=== PATIENT | male | born 1945 | race Caucasian/White ===

== ENCOUNTER 2020-04-05 23:47 | Inpatient (IN) ==
[2020-04-06] MEDS ORDERED: Ipratropium/Albuterol Neb 3 ML ONE (00:10)
[2020-04-06] MEDS ORDERED: methylPREDNISolone 125 MG/2 ML VIAL IVP ONE (00:13)
[2020-04-06] MEDS ORDERED: Racepinephrine Neb 0.5 ML VIAL IH ONE ×2 (00:23→00:27)
[2020-04-06] MEDS ORDERED: Isovue-370 500 ML BOTTLE IVP ONE ×2 (00:28→03:43)
[2020-04-06 00:33] LABS: Basophils # 0.1 K/mcL (0.0-0.2); Basophils % 0.4 %; Eosinophils % 0.1 %; Hemoglobin 13.8 g/dL (12.9-16.9); Immature Granulocytes % 0.9 % (0-4); Lymphocytes # 0.6 K/mcL (0.6-4.6); Lymphocytes % 3.6 %; Mean Corpuscular HGB Conc 31.4 g/dL (31.6-35.5); Mean Corpuscular Hemoglobin 31.5 pg (28.0-33.3); Mean Corpuscular Volume 100.5 fL (83.0-100.0); Monocytes # 0.8 K/mcL (0.0-1.3); Monocytes % 5.1 %; Neutrophils # 14.2 K/mcL (1.6-8.9); Platelet Count 275 K/mcL (140-400); Red Blood Count 4.38 M/mcL (4.19-5.50); Red Cell Distribution Width 14.2 % (11.5-14.5); Segmented Neutrophils % 89.9 %; White Blood Count 15.8 K/mcL (4.3-11.1)
[2020-04-06 00:35] LABS: Prothrombin Time 11.4 Seconds (9.4-12.1)
[2020-04-06 00:38] LABS: Activated Partial Thrombo Time 25.4 Seconds (26.0-36.0)
[2020-04-06 00:44] LABS: ABG Base Excess 10 mEq/L (-2 to 3); ABG HCO3 39 mEq/L (21-27); ABG Oxygen Saturation 98 % (95-98); ABG PCO2 75 mmHg (35-45); ABG PH 7.33 pH Units (7.32-7.45); ABG PO2 115 mmHg (85-104); ABG TCO2 42 mEq/L (20-26)
[2020-04-06 00:57] LABS: Troponin I 0.05 ng/mL (< 0.04)
[2020-04-06 00:58] LABS: Alanine Aminotransferase 28 Units/L (7-52); Albumin 3.5 g/dL (3.5-5.7); Albumin/Globulin Ratio 1.2 (1.1-2.2); Alkaline Phosphatase 53 Units/L (34-104); Aspartate Amino Transferase 14 Units/L (13-39); BUN/Creatinine Ratio 17 (6-26); Bilirubin,Direct 0.1 mg/dL (0.0-0.2); Bilirubin,Indirect 0.3 mg/dL (0.0-1.0); Bilirubin,Total 0.4 mg/dL (0.3-1.0); Blood Urea Nitrogen 16 mg/dL (8-23); Calcium 8.7 mg/dL (8.6-10.3); Carbon Dioxide 38 mEq/L (23-29); Chloride 97 mEq/L (98-107); Glucose 184 mg/dL (70-105); Osmolality,Calculated 296 (280-300); Potassium 4.7 mEq/L (3.5-5.1); Sodium 140 mEq/L (136-145); Total Protein 6.5 g/dL (6.4-8.9); eGFR For African Americans > 60 (> 60); eGFR For Non-African Americans > 60 (> 60)
[2020-04-06 03:15] LABS: ABG Base Excess 11 mEq/L (-2 to 3); ABG HCO3 40 mEq/L (21-27); ABG Oxygen Saturation 93 % (95-98); ABG PCO2 71 mmHg (35-45); ABG PH 7.36 pH Units (7.32-7.45); ABG PO2 75 mmHg (85-104); ABG TCO2 42 mEq/L (20-26)
[2020-04-06] MEDS ORDERED: 0.9 % Sodium Chloride 1,000 ML IVC ONE (03:45)
[2020-04-06] MEDS ORDERED: *HR* Heparin 5,000 UNIT/ML VIAL IVP PRN ×2 (04:35)
[2020-04-06] MEDS ORDERED: *HR* Heparin 5,000 UNIT/ML VIAL IVP ONE (04:35)
[2020-04-06] MEDS ORDERED: Piperacillin/Tazobactam 3.375 GM in Water for inj. (sterile) 20 ML IVP ONE (04:36)
[2020-04-06] MEDS ORDERED: Azithromycin 500 MG in 0.9 % Sodium Chloride 250 ML IVPB ONE (04:38)
[2020-04-06] MEDS ORDERED: Heparin 25,000 UNIT/250 ML D5W 25,000 UNIT/250 ML IV.SOLN IVC SCH (04:45)
[2020-04-06] MEDS ORDERED: Vancomycin 1,500 MG/265 ML IV.SOLN IVPB ONE (05:00)
[2020-04-06] MEDS ORDERED: Naloxone 0.4 MG/ML INJ IVP PRN (05:25)
[2020-04-06] MEDS ORDERED: *HR* Dextrose 50 % in Water (Vial) 50 ML VIAL IVP PRN (05:25)
[2020-04-06] MEDS ORDERED: D5% in Water 1,000 ML IVC PRN (05:25)
[2020-04-06] MEDS ORDERED: Dextrose Gel 15 GM/37.5 ML TUBE PO PRN ×2 (05:25)
[2020-04-06 05:31] LABS: Adenovirus Not Detected (Not Detect); Bordetella Pertussis Not Detected (Not Detect); Chlamydophila pneumoniae Not Detected (Not Detect); Coronavirus 229E Not Detected (Not Detect); Coronavirus HKU1 Not Detected (Not Detect); Coronavirus NL63 Not Detected (Not Detect); Coronavirus OC43 Not Detected (Not Detect); Human Metapneumovirus Not Detected (Not Detect); Human Rhinovirus/Enterovirus Not Detected (Not Detect); Influenza A Subtype 2009 H1 Not Detected (Not Detect); Influenza B Not Detected (Not Detect); Mycoplasma pneumoniae Not Detected (Not Detect); Parainfluenza Virus 1 Not Detected (Not Detect); Parainfluenza Virus 2 Not Detected (Not Detect); Parainfluenza Virus 3 Not Detected (Not Detect); Parainfluenza Virus 4 Not Detected (Not Detect); Respiratory Syncytial Virus Not Detected (Not Detect); SARS-CoV-2 Not Detected (Not Detect)
[2020-04-06] MEDS ORDERED: Perflutren Lipid Microsphere 1.3 ML in 0.9 % Sodium Chloride 8.7 ML IVP PRN ×2 (05:48→16:32)
[2020-04-06 06:01] LABS: Magnesium 2.4 mg/dL (1.6-2.6); Phosphorous 4.4 mg/dL (2.7-4.5)
[2020-04-06] MEDS ORDERED: *HR* Promethazine 25 MG/ML VIAL IVP PRN (06:18)
[2020-04-06] MEDS: Insulin LISPRO 300 UNITS/3 ML VIAL SQ SCH ×4 (06:42→20:27)
[2020-04-06] MEDS ORDERED: Aminoglycoside Consult 1 EACH MC ONE (09:11)
[2020-04-06] MEDS: Apixaban 5 MG TABLET PO SCH ×2 (10:25→19:38)
[2020-04-06 11:18] LABS: Estimated Average Glucose 174 mg/dl; Hemoglobin A1C 7.7 %
[2020-04-06] MEDS: MethylPREDNISolone 40 MG/ML VIAL IVP SCH (12:23)
[2020-04-06] MEDS: Piperacillin/Tazobactam 3.375 GM in 0.9 % Sodium Chloride Mini Bag 100 ML IVPB SCH ×2 (12:23→19:30)
[2020-04-06] MEDS: Ipratropium/Albuterol Neb 3 ML IH SCH ×2 (15:48→21:32)
[2020-04-06] MEDS ORDERED: Albuterol 2.5 MG/3 ML NEBULIZER IH PRN (16:00)
[2020-04-06] MEDS ORDERED: Vancomycin 1,500 MG/265 ML IV.SOLN IVPB SCH (19:00)
[2020-04-06] MEDS: Budesonide/Formoterol 160/4.5 1 PUFF INH IH SCH (21:32)
[2020-04-07] MEDS: MethylPREDNISolone 40 MG/ML VIAL IVP SCH ×2 (00:15→11:41)
[2020-04-07 01:17] LABS: INR 1.5; Prothrombin Time 16.8 Seconds (9.4-12.1)
[2020-04-07 01:18] LABS: Basophils % 0.1 %; Hematocrit 37.6 % (37.5-50.1); Hemoglobin 12.1 g/dL (12.9-16.9); Immature Granulocytes % 0.7 % (0-4); Lymphocytes # 1.7 K/mcL (0.6-4.6); Lymphocytes % 8.3 %; Mean Corpuscular HGB Conc 32.2 g/dL (31.6-35.5); Mean Corpuscular Hemoglobin 32.2 pg (28.0-33.3); Mean Platelet Volume 9.1 fL (9.4-12.4); Monocytes # 0.8 K/mcL (0.0-1.3); Neutrophils # 18.2 K/mcL (1.6-8.9); Platelet Count 270 K/mcL (140-400); Red Blood Count 3.76 M/mcL (4.19-5.50); Red Cell Distribution Width 13.8 % (11.5-14.5); Segmented Neutrophils % 86.9 %
[2020-04-07 01:31] LABS: BUN/Creatinine Ratio 20 (6-26); Blood Urea Nitrogen 16 mg/dL (8-23); Calcium 8.2 mg/dL (8.6-10.3); Carbon Dioxide 34 mEq/L (23-29); Chloride 101 mEq/L (98-107); Glucose 152 mg/dL (70-105); Magnesium 2.3 mg/dL (1.6-2.6); Osmolality,Calculated 290 (280-300); Potassium 3.8 mEq/L (3.5-5.1); Sodium 138 mEq/L (136-145); eGFR For African Americans > 60 (> 60); eGFR For Non-African Americans > 60 (> 60)
[2020-04-07] MEDS: Ipratropium/Albuterol Neb 3 ML IH SCH ×4 (03:38→21:49)
[2020-04-07] MEDS: Piperacillin/Tazobactam 3.375 GM in 0.9 % Sodium Chloride Mini Bag 100 ML IVPB SCH ×3 (03:53→20:09)
[2020-04-07 04:27] LABS: ABG Base Excess 5 mEq/L (-2 to 3); ABG HCO3 30 mEq/L (21-27); ABG Oxygen Saturation 94 % (95-98); ABG PCO2 49 mmHg (35-45); ABG PO2 73 mmHg (85-104); ABG TCO2 32 mEq/L (20-26); Blood Gas Pressure Support 12 cm H2O
[2020-04-07 07:31] LABS: Bilirubin,Urine Negative (Negative); Blood,Urine Negative (Negative); Clarity,Urine Turbid (Clear); Color,Urine Light-Yellow (Yellow); Glucose,Urine (UA) Normal (Normal); Ketones,Urine Negative (Negative); Leukocyte Esterase,Urine Negative (Negative); Mucus,Urine Few per lpf (None-Few); Nitrite,Urine Negative (Negative); Protein,Urine Negative (Neg-Trace); RBC,Urine 0-3 per hpf (0-3); Squamous Epithelial Cell,Urine Few per hpf (None-Few); Urobilinogen,Urine Normal (Normal); WBC,Urine 0-3 per hpf (0-3)
[2020-04-07] MEDS: Apixaban 5 MG TABLET PO SCH ×2 (08:38→20:09)
[2020-04-07] MEDS: Azithromycin 250 MG TABLET PO SCH (08:39)
[2020-04-07] MEDS: Insulin LISPRO 300 UNITS/3 ML VIAL SQ SCH ×4 (08:44→20:10)
[2020-04-07] MEDS: Budesonide/Formoterol 160/4.5 1 PUFF INH IH SCH ×2 (09:57→21:49)
[2020-04-07] MEDS ORDERED: Tiotropium 18 MCG inhalation IH SCH (10:00)
[2020-04-08] MEDS: MethylPREDNISolone 40 MG/ML VIAL IVP SCH ×3 (00:31→18:40)
[2020-04-08] MEDS: Ipratropium/Albuterol Neb 3 ML IH SCH ×6 (03:45→23:48)
[2020-04-08] MEDS: Piperacillin/Tazobactam 3.375 GM in 0.9 % Sodium Chloride Mini Bag 100 ML IVPB SCH ×3 (04:20→21:34)
[2020-04-08 06:36] LABS: Basophils % 0.1 %; Hematocrit 41.4 % (37.5-50.1); Hemoglobin 13.1 g/dL (12.9-16.9); Immature Granulocytes % 0.5 % (0-4); Lymphocytes # 0.9 K/mcL (0.6-4.6); Lymphocytes % 5.8 %; Mean Corpuscular HGB Conc 31.6 g/dL (31.6-35.5); Mean Corpuscular Hemoglobin 31.7 pg (28.0-33.3); Mean Corpuscular Volume 100.2 fL (83.0-100.0); Mean Platelet Volume 9.3 fL (9.4-12.4); Monocytes # 0.3 K/mcL (0.0-1.3); Monocytes % 2.2 %; Neutrophils # 14.1 K/mcL (1.6-8.9); Platelet Count 266 K/mcL (140-400); Red Blood Count 4.13 M/mcL (4.19-5.50); Red Cell Distribution Width 13.9 % (11.5-14.5); Segmented Neutrophils % 91.4 %; White Blood Count 15.4 K/mcL (4.3-11.1)
[2020-04-08 06:43] LABS: BUN/Creatinine Ratio 17 (6-26); Blood Urea Nitrogen 15 mg/dL (8-23); Calcium 8.5 mg/dL (8.6-10.3); Carbon Dioxide 34 mEq/L (23-29); Chloride 99 mEq/L (98-107); Glucose 176 mg/dL (70-105); Magnesium 2.4 mg/dL (1.6-2.6); Osmolality,Calculated 289 (280-300); Sodium 137 mEq/L (136-145); eGFR For African Americans > 60 (> 60); eGFR For Non-African Americans > 60 (> 60)
[2020-04-08] MEDS: Apixaban 5 MG TABLET PO SCH ×2 (08:23→21:35)
[2020-04-08] MEDS: Azithromycin 250 MG TABLET PO SCH (08:23)
[2020-04-08] MEDS: Insulin LISPRO 300 UNITS/3 ML VIAL SQ SCH ×4 (08:24→21:26)
[2020-04-08] MEDS: Budesonide/Formoterol 160/4.5 1 PUFF INH IH SCH ×2 (11:04→20:29)
[2020-04-09 02:28] LABS: Basophils % 0.1 %; Hematocrit 42.2 % (37.5-50.1); Hemoglobin 13.6 g/dL (12.9-16.9); Immature Granulocytes % 0.5 % (0-4); Lymphocytes % 6.5 %; Mean Corpuscular HGB Conc 32.2 g/dL (31.6-35.5); Mean Corpuscular Hemoglobin 32.5 pg (28.0-33.3); Mean Platelet Volume 9.5 fL (9.4-12.4); Monocytes # 0.5 K/mcL (0.0-1.3); Monocytes % 3.5 %; Neutrophils # 13.6 K/mcL (1.6-8.9); Platelet Count 229 K/mcL (140-400); Red Blood Count 4.18 M/mcL (4.19-5.50); Red Cell Distribution Width 13.8 % (11.5-14.5); Segmented Neutrophils % 89.4 %; White Blood Count 15.2 K/mcL (4.3-11.1)
[2020-04-09 02:41] LABS: BUN/Creatinine Ratio 24 (6-26); Blood Urea Nitrogen 17 mg/dL (8-23); Calcium 8.8 mg/dL (8.6-10.3); Carbon Dioxide 31 mEq/L (23-29); Chloride 101 mEq/L (98-107); Glucose 193 mg/dL (70-105); Magnesium 2.5 mg/dL (1.6-2.6); Osmolality,Calculated 293 (280-300); Phosphorous 3.3 mg/dL (2.7-4.5); Potassium 4.1 mEq/L (3.5-5.1); Sodium 138 mEq/L (136-145); eGFR For African Americans > 60 (> 60); eGFR For Non-African Americans > 60 (> 60)
[2020-04-09] MEDS: Piperacillin/Tazobactam 3.375 GM in 0.9 % Sodium Chloride Mini Bag 100 ML IVPB SCH ×3 (03:45→21:22)
[2020-04-09] MEDS: MethylPREDNISolone 40 MG/ML VIAL IVP SCH ×3 (03:45→18:52)
[2020-04-09] MEDS: Ipratropium/Albuterol Neb 3 ML IH SCH ×5 (04:18→20:31)
[2020-04-09] MEDS: Insulin LISPRO 300 UNITS/3 ML VIAL SQ SCH ×4 (07:20→21:23)
[2020-04-09] MEDS: Budesonide/Formoterol 160/4.5 1 PUFF INH IH SCH ×2 (07:36→20:31)
[2020-04-09] MEDS: Apixaban 5 MG TABLET PO SCH ×2 (10:02→21:23)
[2020-04-09] MEDS: Azithromycin 250 MG TABLET PO SCH (10:02)
[2020-04-10] MEDS: Ipratropium/Albuterol Neb 3 ML IH SCH ×7 (00:30→23:37)
[2020-04-10] MEDS: Piperacillin/Tazobactam 3.375 GM in 0.9 % Sodium Chloride Mini Bag 100 ML IVPB SCH ×3 (03:11→19:48)
[2020-04-10] MEDS: MethylPREDNISolone 40 MG/ML VIAL IVP SCH (03:11)
[2020-04-10 03:35] LABS: Basophils % 0.1 %; Hematocrit 39.3 % (37.5-50.1); Hemoglobin 12.8 g/dL (12.9-16.9); Immature Granulocytes % 0.5 % (0-4); Lymphocytes # 1.1 K/mcL (0.6-4.6); Lymphocytes % 6.8 %; Mean Corpuscular HGB Conc 32.6 g/dL (31.6-35.5); Mean Corpuscular Hemoglobin 31.4 pg (28.0-33.3); Mean Corpuscular Volume 96.6 fL (83.0-100.0); Mean Platelet Volume 9.3 fL (9.4-12.4); Monocytes # 0.6 K/mcL (0.0-1.3); Monocytes % 3.5 %; Platelet Count 255 K/mcL (140-400); Red Blood Count 4.07 M/mcL (4.19-5.50); Red Cell Distribution Width 13.7 % (11.5-14.5); Segmented Neutrophils % 89.1 %; White Blood Count 15.7 K/mcL (4.3-11.1)
[2020-04-10 03:48] LABS: BUN/Creatinine Ratio 28 (6-26); Blood Urea Nitrogen 19 mg/dL (8-23); Calcium 8.6 mg/dL (8.6-10.3); Carbon Dioxide 31 mEq/L (23-29); Chloride 101 mEq/L (98-107); Glucose 157 mg/dL (70-105); Magnesium 2.5 mg/dL (1.6-2.6); Osmolality,Calculated 290 (280-300); Phosphorous 2.8 mg/dL (2.7-4.5); Potassium 3.8 mEq/L (3.5-5.1); Sodium 137 mEq/L (136-145); eGFR For African Americans > 60 (> 60); eGFR For Non-African Americans > 60 (> 60)
[2020-04-10] MEDS: Budesonide/Formoterol 160/4.5 1 PUFF INH IH SCH ×2 (07:51→20:07)
[2020-04-10] MEDS: Apixaban 5 MG TABLET PO SCH ×2 (08:21→19:56)
[2020-04-10] MEDS: Insulin LISPRO 300 UNITS/3 ML VIAL SQ SCH ×4 (08:22→20:07)
[2020-04-10] MEDS: predniSONE 20 MG TABLET PO SCH ×2 (08:22→16:38)
[2020-04-10] MEDS: Azithromycin 250 MG TABLET PO SCH (08:22)
[2020-04-11] MEDS: Ipratropium/Albuterol Neb 3 ML IH SCH ×6 (03:58→23:06)
[2020-04-11] MEDS: Piperacillin/Tazobactam 3.375 GM in 0.9 % Sodium Chloride Mini Bag 100 ML IVPB SCH ×3 (04:09→20:12)
[2020-04-11 05:05] LABS: ABG Base Excess 7 mEq/L (-2 to 3); ABG HCO3 33 mEq/L (21-27); ABG Oxygen Saturation 95 % (95-98); ABG PCO2 53 mmHg (35-45); ABG PO2 78 mmHg (85-104); ABG TCO2 35 mEq/L (20-26)
[2020-04-11 06:41] LABS: Basophils % 0.1 %; Eosinophils % 0.1 %; Hematocrit 39.3 % (37.5-50.1); Hemoglobin 12.8 g/dL (12.9-16.9); Lymphocytes # 1.8 K/mcL (0.6-4.6); Lymphocytes % 12.8 %; Mean Corpuscular HGB Conc 32.6 g/dL (31.6-35.5); Mean Corpuscular Hemoglobin 31.4 pg (28.0-33.3); Mean Corpuscular Volume 96.3 fL (83.0-100.0); Mean Platelet Volume 9.4 fL (9.4-12.4); Monocytes # 0.7 K/mcL (0.0-1.3); Neutrophils # 11.7 K/mcL (1.6-8.9); Platelet Count 251 K/mcL (140-400); Red Blood Count 4.08 M/mcL (4.19-5.50); Red Cell Distribution Width 13.9 % (11.5-14.5); White Blood Count 14.4 K/mcL (4.3-11.1)
[2020-04-11 07:02] LABS: BUN/Creatinine Ratio 26 (6-26); Blood Urea Nitrogen 21 mg/dL (8-23); Calcium 8.2 mg/dL (8.6-10.3); Carbon Dioxide 32 mEq/L (23-29); Chloride 100 mEq/L (98-107); Glucose 167 mg/dL (70-105); Magnesium 2.4 mg/dL (1.6-2.6); Osmolality,Calculated 293 (280-300); Phosphorous 2.7 mg/dL (2.7-4.5); Potassium 3.8 mEq/L (3.5-5.1); Sodium 138 mEq/L (136-145); eGFR For African Americans > 60 (> 60); eGFR For Non-African Americans > 60 (> 60)
[2020-04-11] MEDS: Azithromycin 250 MG TABLET PO SCH (08:58)
[2020-04-11] MEDS: predniSONE 20 MG TABLET PO SCH ×2 (08:58→17:11)
[2020-04-11] MEDS: Apixaban 5 MG TABLET PO SCH ×2 (08:59→20:12)
[2020-04-11] MEDS: Insulin LISPRO 300 UNITS/3 ML VIAL SQ SCH ×4 (08:59→20:12)
[2020-04-11] MEDS: Budesonide/Formoterol 160/4.5 1 PUFF INH IH SCH ×2 (10:30→19:52)
[2020-04-11] MEDS: Finasteride 5 MG TABLET PO SCH (20:11)
[2020-04-11] MEDS: Mirtazapine 15 MG TABLET PO SCH (20:12)
[2020-04-11] MEDS ORDERED: IPRATROPIUM BROMIDE NS SCH (21:00)
[2020-04-12 02:05] LABS: Basophils % 0.1 %; Hematocrit 40.7 % (37.5-50.1); Hemoglobin 13.2 g/dL (12.9-16.9); Immature Granulocytes % 0.6 % (0-4); Lymphocytes # 0.6 K/mcL (0.6-4.6); Lymphocytes % 5.4 %; Mean Corpuscular HGB Conc 32.4 g/dL (31.6-35.5); Mean Corpuscular Hemoglobin 31.9 pg (28.0-33.3); Mean Corpuscular Volume 98.3 fL (83.0-100.0); Mean Platelet Volume 9.5 fL (9.4-12.4); Monocytes # 0.4 K/mcL (0.0-1.3); Monocytes % 2.9 %; Neutrophils # 10.8 K/mcL (1.6-8.9); Platelet Count 250 K/mcL (140-400); Red Blood Count 4.14 M/mcL (4.19-5.50); Red Cell Distribution Width 13.9 % (11.5-14.5); White Blood Count 11.9 K/mcL (4.3-11.1)
[2020-04-12 02:21] LABS: BUN/Creatinine Ratio 23 (6-26); Blood Urea Nitrogen 19 mg/dL (8-23); Calcium 8.1 mg/dL (8.6-10.3); Carbon Dioxide 30 mEq/L (23-29); Chloride 102 mEq/L (98-107); Glucose 206 mg/dL (70-105); Magnesium 2.5 mg/dL (1.6-2.6); Osmolality,Calculated 294 (280-300); Phosphorous 3.2 mg/dL (2.7-4.5); Sodium 138 mEq/L (136-145); eGFR For African Americans > 60 (> 60); eGFR For Non-African Americans > 60 (> 60)
[2020-04-12] MEDS: Piperacillin/Tazobactam 3.375 GM in 0.9 % Sodium Chloride Mini Bag 100 ML IVPB SCH ×3 (03:51→20:10)
[2020-04-12] MEDS: Ipratropium/Albuterol Neb 3 ML IH SCH ×5 (04:18→20:37)
[2020-04-12] MEDS: predniSONE 20 MG TABLET PO SCH ×2 (07:36→16:15)
[2020-04-12] MEDS: Bumetanide 1 MG TABLET PO SCH (07:37)
[2020-04-12] MEDS: Insulin LISPRO 300 UNITS/3 ML VIAL SQ SCH ×4 (07:38→20:10)
[2020-04-12] MEDS: Apixaban 5 MG TABLET PO SCH ×2 (07:38→20:10)
[2020-04-12] MEDS: Budesonide/Formoterol 160/4.5 1 PUFF INH IH SCH ×2 (07:46→20:38)
[2020-04-12] MEDS: Mirtazapine 15 MG TABLET PO SCH (20:09)
[2020-04-12] MEDS: Finasteride 5 MG TABLET PO SCH (20:10)
[2020-04-13] MEDS: Ipratropium/Albuterol Neb 3 ML IH SCH ×3 (00:09→07:38)
[2020-04-13 02:47] LABS: Basophils % 0.1 %; Hematocrit 39.3 % (37.5-50.1); Hemoglobin 12.7 g/dL (12.9-16.9); Immature Granulocytes % 0.6 % (0-4); Lymphocytes # 1.2 K/mcL (0.6-4.6); Lymphocytes % 8.3 %; Mean Corpuscular HGB Conc 32.3 g/dL (31.6-35.5); Mean Corpuscular Hemoglobin 31.8 pg (28.0-33.3); Mean Corpuscular Volume 98.3 fL (83.0-100.0); Mean Platelet Volume 9.7 fL (9.4-12.4); Monocytes # 0.5 K/mcL (0.0-1.3); Monocytes % 3.7 %; Neutrophils # 12.3 K/mcL (1.6-8.9); Platelet Count 215 K/mcL (140-400); Red Cell Distribution Width 13.9 % (11.5-14.5); Segmented Neutrophils % 87.3 %; White Blood Count 14.1 K/mcL (4.3-11.1)
[2020-04-13 03:07] LABS: BUN/Creatinine Ratio 24 (6-26); Blood Urea Nitrogen 22 mg/dL (8-23); Calcium 8.4 mg/dL (8.6-10.3); Carbon Dioxide 29 mEq/L (23-29); Chloride 103 mEq/L (98-107); Glucose 186 mg/dL (70-105); Magnesium 2.3 mg/dL (1.6-2.6); Osmolality,Calculated 296 (280-300); Phosphorous 3.5 mg/dL (2.7-4.5); Potassium 3.9 mEq/L (3.5-5.1); Sodium 139 mEq/L (136-145); eGFR For African Americans > 60 (> 60); eGFR For Non-African Americans > 60 (> 60)
[2020-04-13] MEDS: Piperacillin/Tazobactam 3.375 GM in 0.9 % Sodium Chloride Mini Bag 100 ML IVPB SCH (03:28)
[2020-04-13 07:31] VITALS: BP 131/77
[2020-04-13] MEDS: Budesonide/Formoterol 160/4.5 1 PUFF INH IH SCH (07:38)
[2020-04-13] MEDS: Insulin LISPRO 300 UNITS/3 ML VIAL SQ SCH (07:46)
[2020-04-13] MEDS: Bumetanide 1 MG TABLET PO SCH (07:47)
[2020-04-13] MEDS: predniSONE 20 MG TABLET PO SCH (07:47)
[2020-04-13] MEDS ORDERED: Apixaban 5 MG TABLET PO SCH (09:00)
== END 2020-04-13 09:12 | DRG 175 ==
LOC: 2NNU 23:47 → EMEROOARM 23:47 → 2NNU 04-06 06:10 → SUATTDRO 04-06 16:58 → 2ANU 04-08 18:14
PROVIDERS: ADMIT Internal Medicine; ATTEND Internal Medicine

== ENCOUNTER 2020-07-05 14:13 | Inpatient (IN) ==
[2020-07-05] MEDS ORDERED: Isovue-370 500 ML BOTTLE IVP ONE ×2 (14:41→15:53)
[2020-07-05] MEDS ORDERED: 0.9 % Sodium Chloride 1,000 ML IVC ONE ×2 (14:43→15:54)
[2020-07-05 14:55] LABS: Basophils # 0.1 K/mcL (0.0-0.2); Basophils % 0.3 %; Eosinophils % 0.1 %; Hematocrit 37.5 % (37.5-50.1); Hemoglobin 11.7 g/dL (12.9-16.9); Immature Granulocytes % 0.7 % (0-4); Lymphocytes # 0.3 K/mcL (0.6-4.6); Lymphocytes % 1.9 %; Mean Corpuscular HGB Conc 31.2 g/dL (31.6-35.5); Mean Corpuscular Hemoglobin 31.2 pg (28.0-33.3); Mean Platelet Volume 9.4 fL (9.4-12.4); Monocytes # 0.6 K/mcL (0.0-1.3); Monocytes % 3.6 %; Neutrophils # 15.7 K/mcL (1.6-8.9); Platelet Count 288 K/mcL (140-400); Red Blood Count 3.75 M/mcL (4.19-5.50); Red Cell Distribution Width 13.8 % (11.5-14.5); Segmented Neutrophils % 93.4 %; White Blood Count 16.8 K/mcL (4.3-11.1)
[2020-07-05 15:05] LABS: INR 1.6; Prothrombin Time 18.7 Seconds (9.4-12.1)
[2020-07-05 15:08] LABS: Activated Partial Thrombo Time 28.6 Seconds (26.0-36.0)
[2020-07-05 15:17] LABS: Alanine Aminotransferase 25 Units/L (7-52); Albumin 3.6 g/dL (3.5-5.7); Albumin/Globulin Ratio 1.2 (1.1-2.2); Alkaline Phosphatase 59 Units/L (34-104); Aspartate Amino Transferase 27 Units/L (13-39); BUN/Creatinine Ratio 22 (6-26); Bilirubin,Direct 0.1 mg/dL (0.0-0.2); Bilirubin,Indirect 0.3 mg/dL (0.0-1.0); Bilirubin,Total 0.4 mg/dL (0.3-1.0); Blood Urea Nitrogen 20 mg/dL (8-23); Calcium 9.4 mg/dL (8.6-10.3); Carbon Dioxide 29 mEq/L (23-29); Chloride 102 mEq/L (98-107); Globulin 3.1 g/dL (2.4-3.5); Glucose 152 mg/dL (70-105); Osmolality,Calculated 292 (280-300); Phosphorous 1.7 mg/dL (2.7-4.5); Potassium 3.4 mEq/L (3.5-5.1); Sodium 138 mEq/L (136-145); Total Protein 6.7 g/dL (6.4-8.9); Troponin I 0.03 ng/mL (< 0.04); eGFR For African Americans > 60 (> 60); eGFR For Non-African Americans > 60 (> 60)
[2020-07-05 15:24] LABS: Bacteria,Urine Few per hpf (None-Few); Bilirubin,Urine Negative (Negative); Blood,Urine Large (Negative); Clarity,Urine Ex.Turbid (Clear); Color,Urine Orange (Yellow); Glucose,Urine (UA) Normal (Normal); Ketones,Urine Negative (Negative); Leukocyte Esterase,Urine Large (Negative); Mucus,Urine Many per lpf (None-Few); Nitrite,Urine Negative (Negative); Protein,Urine 100 mg/dL (Neg-Trace); RBC,Urine TNTC per hpf (0-3); Specific Gravity,Urine 1.024 (1.010-1.025); Urobilinogen,Urine Normal (Normal); WBC,Urine TNTC per hpf (0-3)
[2020-07-05] MEDS ORDERED: cefTRIAXone 1,000 MG in 0.9 % Sodium Chloride Mini Bag 100 ML IVPB ONE (16:07)
[2020-07-05] MEDS ORDERED: *HR* Norepinephrine 4 MG/4 ML VIAL IVC ONE (17:43)
[2020-07-05] MEDS ORDERED: 0.9 % Sodium Chloride 250 ML ONE (17:43)
[2020-07-05] MEDS ORDERED: Ondansetron 4 MG/2 ML VIAL IVP PRN (18:12)
[2020-07-05] MEDS ORDERED: Naloxone 0.4 MG/ML INJ IVP PRN (18:12)
[2020-07-05] MEDS ORDERED: Acetaminophen 650 MG RECTAL SUPP RC PRN (18:12)
[2020-07-05] MEDS: Norepinephrine 4 MG/254 ML IV.SOLN IVC SCH (18:38)
[2020-07-05 22:35] LABS: VBG Ionized Calcium 1.14 mmol/L (1.15-1.35)
[2020-07-05 22:47] LABS: BUN/Creatinine Ratio 22 (6-26); Blood Urea Nitrogen 17 mg/dL (8-23); Calcium 8.6 mg/dL (8.6-10.3); Carbon Dioxide 27 mEq/L (23-29); Chloride 105 mEq/L (98-107); Glucose 147 mg/dL (70-105); Magnesium 2.1 mg/dL (1.6-2.6); Osmolality,Calculated 292 (280-300); Phosphorous 3.3 mg/dL (2.7-4.5); Potassium 3.7 mEq/L (3.5-5.1); Sodium 139 mEq/L (136-145); eGFR For African Americans > 60 (> 60); eGFR For Non-African Americans > 60 (> 60)
[2020-07-05] MEDS: Ipratropium/Albuterol Neb 3 ML IH SCH (22:54)
[2020-07-05] MEDS: Acetylcysteine 10% 2 ML INHSOL IH SCH (22:54)
[2020-07-05] MEDS: Docusate Oral Soln 100 MG/10 ML UDC GTUBE SCH (23:16)
[2020-07-05] MEDS: Famotidine 20 MG TABLET GTUBE SCH (23:16)
[2020-07-05] MEDS: Apixaban 5 MG TABLET GTUBE SCH (23:16)
[2020-07-05] MEDS: QUEtiapine Fumarate 25 MG TABLET GTUBE SCH (23:17)
[2020-07-06 04:22] LABS: Basophils # 0.1 K/mcL (0.0-0.2); Basophils % 0.4 %; Eosinophils % 0.1 %; Hematocrit 31.6 % (37.5-50.1); Hemoglobin 9.9 g/dL (12.9-16.9); Immature Granulocytes % 0.4 % (0-4); Lymphocytes # 0.7 K/mcL (0.6-4.6); Lymphocytes % 5.5 %; Mean Corpuscular HGB Conc 31.3 g/dL (31.6-35.5); Mean Corpuscular Hemoglobin 31.5 pg (28.0-33.3); Mean Corpuscular Volume 100.6 fL (83.0-100.0); Mean Platelet Volume 9.5 fL (9.4-12.4); Monocytes # 0.5 K/mcL (0.0-1.3); Monocytes % 4.2 %; Platelet Count 241 K/mcL (140-400); Red Blood Count 3.14 M/mcL (4.19-5.50); Red Cell Distribution Width 13.9 % (11.5-14.5); Segmented Neutrophils % 89.4 %; White Blood Count 12.3 K/mcL (4.3-11.1)
[2020-07-06 04:23] LABS: VBG Ionized Calcium 1.19 mmol/L (1.15-1.35)
[2020-07-06] MEDS: Ipratropium/Albuterol Neb 3 ML IH SCH ×4 (04:26→22:21)
[2020-07-06] MEDS: Acetylcysteine 10% 2 ML INHSOL IH SCH ×4 (04:26→22:21)
[2020-07-06 04:39] LABS: BUN/Creatinine Ratio 23 (6-26); Blood Urea Nitrogen 17 mg/dL (8-23); Calcium 8.7 mg/dL (8.6-10.3); Carbon Dioxide 29 mEq/L (23-29); Chloride 107 mEq/L (98-107); Glucose 108 mg/dL (70-105); Osmolality,Calculated 292 (280-300); Phosphorous 2.6 mg/dL (2.7-4.5); Potassium 3.5 mEq/L (3.5-5.1); Sodium 140 mEq/L (136-145); eGFR For African Americans > 60 (> 60); eGFR For Non-African Americans > 60 (> 60)
[2020-07-06] MEDS ORDERED: Potassium Phosphate 44 MEQ in 0.9 % Sodium Chloride 250 ML IVPB ONE (05:38)
[2020-07-06] MEDS: Cefepime HCl 2,000 MG in Water for inj. (sterile) 20 ML IVP SCH ×2 (06:41→19:47)
[2020-07-06] MEDS: Apixaban 5 MG TABLET GTUBE SCH ×2 (09:07→21:27)
[2020-07-06] MEDS: Finasteride 5 MG TABLET PO SCH (09:07)
[2020-07-06] MEDS: QUEtiapine Fumarate 25 MG TABLET GTUBE SCH ×2 (09:07→21:27)
[2020-07-06] MEDS: Famotidine 20 MG TABLET GTUBE SCH ×2 (09:07→21:27)
[2020-07-06] MEDS: Docusate Oral Soln 100 MG/10 ML UDC GTUBE SCH ×2 (09:08→21:27)
[2020-07-06] MEDS: Norepinephrine 4 MG/254 ML IV.SOLN IVC SCH (22:25)
[2020-07-07] MEDS: Acetylcysteine 10% 2 ML INHSOL IH SCH ×4 (04:17→22:14)
[2020-07-07] MEDS: Ipratropium/Albuterol Neb 3 ML IH SCH ×4 (04:17→22:14)
[2020-07-07 04:51] LABS: BUN/Creatinine Ratio 67 (6-26); Blood Urea Nitrogen 50 mg/dL (8-23); Calcium 8.6 mg/dL (8.6-10.3); Carbon Dioxide 31 mEq/L (23-29); Chloride 108 mEq/L (98-107); Glucose 160 mg/dL (70-105); Osmolality,Calculated 313 (280-300); Potassium 4.1 mEq/L (3.5-5.1); Sodium 143 mEq/L (136-145); eGFR For African Americans > 60 (> 60); eGFR For Non-African Americans > 60 (> 60)
[2020-07-07] MEDS: Cefepime HCl 2,000 MG in Water for inj. (sterile) 20 ML IVP SCH ×2 (05:45→17:16)
[2020-07-07 08:11] LABS: Basophils % 0.4 %; Eosinophils # 0.4 K/mcL (0.0-0.6); Eosinophils % 5.3 %; Hematocrit 33.2 % (37.5-50.1); Immature Granulocytes % 0.1 % (0-4); Lymphocytes # 1.7 K/mcL (0.6-4.6); Lymphocytes % 21.7 %; Mean Corpuscular HGB Conc 31.6 g/dL (31.6-35.5); Mean Corpuscular Hemoglobin 32.3 pg (28.0-33.3); Mean Platelet Volume 9.3 fL (9.4-12.4); Monocytes # 0.6 K/mcL (0.0-1.3); Monocytes % 7.4 %; Neutrophils # 5.2 K/mcL (1.6-8.9); Platelet Count 214 K/mcL (140-400); Red Blood Count 3.25 M/mcL (4.19-5.50); Red Cell Distribution Width 13.8 % (11.5-14.5); Segmented Neutrophils % 65.1 %
[2020-07-07 08:12] LABS: Hemoglobin 10.5 g/dL (12.9-16.9); Mean Corpuscular Volume 102.2 fL (83.0-100.0)
[2020-07-07] MEDS: Famotidine 20 MG TABLET GTUBE SCH (08:49)
[2020-07-07] MEDS: Docusate Oral Soln 100 MG/10 ML UDC GTUBE SCH (08:49)
[2020-07-07] MEDS: Finasteride 5 MG TABLET PO SCH (08:49)
[2020-07-07] MEDS: QUEtiapine Fumarate 25 MG TABLET GTUBE SCH (08:49)
[2020-07-07] MEDS: Apixaban 5 MG TABLET GTUBE SCH (08:50)
[2020-07-07] MEDS ORDERED: Ondansetron 4 MG/2 ML VIAL IVP PRN (10:39)
[2020-07-07] MEDS ORDERED: Albuterol 2.5 MG/3 ML NEBULIZER IH PRN (10:39)
[2020-07-07] MEDS ORDERED: Naloxone 0.4 MG/ML INJ IVP PRN (10:39)
[2020-07-07] MEDS ORDERED: Acetaminophen 650 MG RECTAL SUPP RC PRN (10:39)
[2020-07-07] MEDS ORDERED: hydrOXYzine pamoate 25 MG CAPSULE PO PRN (10:39)
[2020-07-07] MEDS ORDERED: Ondansetron ODT 4 MG TAB.RAPDIS SL PRN (10:39)
[2020-07-07] MEDS: Bumetanide 1 MG TABLET PO SCH (12:37)
[2020-07-07] MEDS: Potassium Chloride Elixir 20 MEQ/15 ML UDC PO SCH (17:16)
[2020-07-07] MEDS: Sennosides/Docusate Sodium TABLET PO SCH (19:33)
[2020-07-07] MEDS: Famotidine 20 MG TABLET PO SCH (19:33)
[2020-07-07] MEDS: QUEtiapine Fumarate 25 MG TABLET PO SCH (19:33)
[2020-07-07] MEDS: Apixaban 5 MG TABLET PO SCH (19:33)
[2020-07-07] MEDS: Docusate Oral Soln 100 MG/10 ML UDC PO SCH (19:33)
[2020-07-07] MEDS ORDERED: QUEtiapine Fumarate 25 MG TABLET PO SCH (21:00)
[2020-07-07] MEDS: Latanoprost 2.5 ML BOTTLE BOTH EYES SCH (21:11)
[2020-07-08] MEDS: Acetylcysteine 10% 2 ML INHSOL IH SCH ×4 (04:16→21:21)
[2020-07-08] MEDS: Ipratropium/Albuterol Neb 3 ML IH SCH ×4 (04:16→21:21)
[2020-07-08 04:28] LABS: Basophils % 0.4 %; Eosinophils # 0.4 K/mcL (0.0-0.6); Eosinophils % 5.7 %; Hematocrit 33.6 % (37.5-50.1); Hemoglobin 10.6 g/dL (12.9-16.9); Immature Granulocytes % 0.4 % (0-4); Lymphocytes # 1.7 K/mcL (0.6-4.6); Mean Corpuscular HGB Conc 31.5 g/dL (31.6-35.5); Mean Corpuscular Hemoglobin 30.6 pg (28.0-33.3); Mean Corpuscular Volume 97.1 fL (83.0-100.0); Mean Platelet Volume 9.7 fL (9.4-12.4); Monocytes # 0.6 K/mcL (0.0-1.3); Neutrophils # 4.5 K/mcL (1.6-8.9); Platelet Count 237 K/mcL (140-400); Red Blood Count 3.46 M/mcL (4.19-5.50); Red Cell Distribution Width 13.7 % (11.5-14.5); Segmented Neutrophils % 62.5 %; White Blood Count 7.2 K/mcL (4.3-11.1)
[2020-07-08 04:54] LABS: BUN/Creatinine Ratio 25 (6-26); Blood Urea Nitrogen 18 mg/dL (8-23); Calcium 8.4 mg/dL (8.6-10.3); Carbon Dioxide 28 mEq/L (23-29); Chloride 103 mEq/L (98-107); Glucose 101 mg/dL (70-105); Osmolality,Calculated 288 (280-300); Potassium 2.8 mEq/L (3.5-5.1); Sodium 138 mEq/L (136-145); eGFR For African Americans > 60 (> 60); eGFR For Non-African Americans > 60 (> 60)
[2020-07-08] MEDS: Cefepime HCl 2,000 MG in Water for inj. (sterile) 20 ML IVP SCH ×3 (05:09→23:31)
[2020-07-08] MEDS: Finasteride 5 MG TABLET PO SCH (08:39)
[2020-07-08] MEDS: Sennosides/Docusate Sodium TABLET PO SCH ×2 (08:39→22:37)
[2020-07-08] MEDS: Docusate Oral Soln 100 MG/10 ML UDC PO SCH ×2 (08:39→22:38)
[2020-07-08] MEDS: Apixaban 5 MG TABLET PO SCH ×2 (08:39→22:38)
[2020-07-08] MEDS: Bumetanide 1 MG TABLET PO SCH (08:39)
[2020-07-08] MEDS: QUEtiapine Fumarate 25 MG TABLET PO SCH ×2 (08:39→22:38)
[2020-07-08] MEDS: Potassium Chloride Elixir 20 MEQ/15 ML UDC PO SCH ×3 (08:39→22:38)
[2020-07-08] MEDS: Famotidine 20 MG TABLET PO SCH ×2 (08:39→22:37)
[2020-07-08] MEDS: Latanoprost 2.5 ML BOTTLE BOTH EYES SCH (22:39)
[2020-07-09] MEDS: Acetylcysteine 10% 2 ML INHSOL IH SCH ×4 (03:41→21:39)
[2020-07-09] MEDS: Ipratropium/Albuterol Neb 3 ML IH SCH ×4 (03:41→21:39)
[2020-07-09] MEDS: Cefepime HCl 2,000 MG in Water for inj. (sterile) 20 ML IVP SCH ×2 (07:47→15:55)
[2020-07-09] MEDS: Famotidine 20 MG TABLET PO SCH ×2 (07:48→21:53)
[2020-07-09] MEDS: QUEtiapine Fumarate 25 MG TABLET PO SCH ×2 (07:48→21:54)
[2020-07-09] MEDS: Apixaban 5 MG TABLET PO SCH ×2 (07:48→21:53)
[2020-07-09] MEDS: Sennosides/Docusate Sodium TABLET PO SCH ×2 (07:48→21:54)
[2020-07-09] MEDS: Docusate Oral Soln 100 MG/10 ML UDC PO SCH ×2 (07:48→21:54)
[2020-07-09] MEDS: Bumetanide 1 MG TABLET PO SCH (07:48)
[2020-07-09] MEDS: Finasteride 5 MG TABLET PO SCH (07:48)
[2020-07-09 08:42] LABS: Magnesium 2.1 mg/dL (1.6-2.6); Potassium 3.6 mEq/L (3.5-5.1)
[2020-07-09] MEDS ORDERED: Potassium Chloride Elixir 20 MEQ/15 ML UDC PO ONE (09:19)
[2020-07-09] MEDS: Latanoprost 2.5 ML BOTTLE BOTH EYES SCH (21:54)
[2020-07-10] MEDS: Cefepime HCl 2,000 MG in Water for inj. (sterile) 20 ML IVP SCH ×3 (00:58→15:39)
[2020-07-10] MEDS: Ipratropium/Albuterol Neb 3 ML IH SCH ×4 (03:49→21:02)
[2020-07-10] MEDS: Acetylcysteine 10% 2 ML INHSOL IH SCH ×4 (03:49→21:02)
[2020-07-10] MEDS: Famotidine 20 MG TABLET PO SCH ×2 (07:38→21:52)
[2020-07-10] MEDS: Finasteride 5 MG TABLET PO SCH (07:38)
[2020-07-10] MEDS: Apixaban 5 MG TABLET PO SCH ×2 (07:38→21:51)
[2020-07-10] MEDS: Sennosides/Docusate Sodium TABLET PO SCH (07:38)
[2020-07-10] MEDS: Docusate Oral Soln 100 MG/10 ML UDC PO SCH ×2 (07:38→21:52)
[2020-07-10] MEDS: Bumetanide 1 MG TABLET PO SCH (07:38)
[2020-07-10] MEDS: QUEtiapine Fumarate 25 MG TABLET PO SCH ×2 (07:39→21:51)
[2020-07-10 10:24] LABS: BUN/Creatinine Ratio 21 (6-26); Blood Urea Nitrogen 16 mg/dL (8-23); Calcium 9.2 mg/dL (8.6-10.3); Carbon Dioxide 29 mEq/L (23-29); Chloride 100 mEq/L (98-107); Glucose 135 mg/dL (70-105); Osmolality,Calculated 289 (280-300); Potassium 3.7 mEq/L (3.5-5.1); Sodium 138 mEq/L (136-145); eGFR For African Americans > 60 (> 60); eGFR For Non-African Americans > 60 (> 60)
[2020-07-10] MEDS ORDERED: Sennosides/Docusate Sodium TABLET PO PRN (12:29)
[2020-07-10] MEDS: Latanoprost 2.5 ML BOTTLE BOTH EYES SCH (21:52)
[2020-07-11] MEDS: Cefepime HCl 2,000 MG in Water for inj. (sterile) 20 ML IVP SCH ×3 (00:36→18:06)
[2020-07-11] MEDS: Acetylcysteine 10% 2 ML INHSOL IH SCH ×4 (03:28→21:21)
[2020-07-11] MEDS: Ipratropium/Albuterol Neb 3 ML IH SCH ×4 (03:28→21:21)
[2020-07-11 07:14] LABS: Hematocrit 34.7 % (37.5-50.1); Hemoglobin 11.2 g/dL (12.9-16.9); Mean Corpuscular HGB Conc 32.3 g/dL (31.6-35.5); Mean Corpuscular Volume 99.1 fL (83.0-100.0); Mean Platelet Volume 9.3 fL (9.4-12.4); Platelet Count 296 K/mcL (140-400); Red Cell Distribution Width 13.4 % (11.5-14.5); White Blood Count 7.6 K/mcL (4.3-11.1)
[2020-07-11 08:07] LABS: BUN/Creatinine Ratio 18 (6-26); Blood Urea Nitrogen 14 mg/dL (8-23); Calcium 9.3 mg/dL (8.6-10.3); Carbon Dioxide 34 mEq/L (23-29); Chloride 101 mEq/L (98-107); Glucose 110 mg/dL (70-105); Osmolality,Calculated 289 (280-300); Potassium 3.8 mEq/L (3.5-5.1); Sodium 139 mEq/L (136-145); eGFR For African Americans > 60 (> 60); eGFR For Non-African Americans > 60 (> 60)
[2020-07-11] MEDS: Finasteride 5 MG TABLET PO SCH (10:15)
[2020-07-11] MEDS: Docusate Oral Soln 100 MG/10 ML UDC PO SCH ×2 (10:15→22:30)
[2020-07-11] MEDS: Apixaban 5 MG TABLET PO SCH ×2 (10:15→22:30)
[2020-07-11] MEDS: Famotidine 20 MG TABLET PO SCH (10:15)
[2020-07-11] MEDS: QUEtiapine Fumarate 25 MG TABLET PO SCH ×2 (10:16→22:29)
[2020-07-11] MEDS: Bumetanide 1 MG TABLET PO SCH (10:25)
[2020-07-11] MEDS: Latanoprost 2.5 ML BOTTLE BOTH EYES SCH (22:30)
[2020-07-12] MEDS: Cefepime HCl 2,000 MG in Water for inj. (sterile) 20 ML IVP SCH ×2 (01:57→09:12)
[2020-07-12 02:01] LABS: BUN/Creatinine Ratio 19 (6-26); Blood Urea Nitrogen 15 mg/dL (8-23); Carbon Dioxide 31 mEq/L (23-29); Chloride 98 mEq/L (98-107); Glucose 104 mg/dL (70-105); Osmolality,Calculated 285 (280-300); Potassium 3.1 mEq/L (3.5-5.1); Sodium 137 mEq/L (136-145); eGFR For African Americans > 60 (> 60); eGFR For Non-African Americans > 60 (> 60)
[2020-07-12] MEDS: Acetylcysteine 10% 2 ML INHSOL IH SCH ×3 (03:28→15:35)
[2020-07-12] MEDS: Ipratropium/Albuterol Neb 3 ML IH SCH ×3 (03:28→15:35)
[2020-07-12] MEDS: Bumetanide 1 MG TABLET PO SCH (09:12)
[2020-07-12] MEDS: Docusate Oral Soln 100 MG/10 ML UDC PO SCH (09:12)
[2020-07-12] MEDS: Apixaban 5 MG TABLET PO SCH (09:13)
[2020-07-12] MEDS: Finasteride 5 MG TABLET PO SCH (09:13)
[2020-07-12] MEDS: QUEtiapine Fumarate 25 MG TABLET PO SCH (09:13)
[2020-07-12 11:18] VITALS: BP 114/69
[2020-07-12 13:11] LABS: Adenovirus Not Detected (Not Detect); Bordetella Pertussis Not Detected (Not Detect); Chlamydophila pneumoniae Not Detected (Not Detect); Coronavirus 229E Not Detected (Not Detect); Coronavirus HKU1 Not Detected (Not Detect); Coronavirus NL63 Not Detected (Not Detect); Coronavirus OC43 Not Detected (Not Detect); Human Metapneumovirus Not Detected (Not Detect); Human Rhinovirus/Enterovirus Not Detected (Not Detect); Influenza A Subtype 2009 H1 Not Detected (Not Detect); Influenza B Not Detected (Not Detect); Mycoplasma pneumoniae Not Detected (Not Detect); Parainfluenza Virus 1 Not Detected (Not Detect); Parainfluenza Virus 2 Not Detected (Not Detect); Parainfluenza Virus 3 Not Detected (Not Detect); Parainfluenza Virus 4 Not Detected (Not Detect); Respiratory Syncytial Virus Not Detected (Not Detect); SARS-CoV-2 Not Detected (Not Detect)
== END 2020-07-12 17:08 | DRG 698 ==
LOC: EMEROOARM 14:13 → ICNU 18:46 → SUATTDRO 18:46 → ICNU 20:13 → 2ANU 07-08 19:32
PROVIDERS: ADMIT Family Medicine; ATTEND Internal Medicine

== ENCOUNTER 2020-08-21 21:29 | Inpatient (IN) ==
[2020-08-21 22:42] LABS: Basophils # 0.1 K/mcL (0.0-0.2); Basophils % 0.4 %; Hematocrit 34.5 % (37.5-50.1); Hemoglobin 11.4 g/dL (12.9-16.9); Immature Granulocytes % 0.3 % (0-4); Lymphocytes # 1.5 K/mcL (0.6-4.6); Lymphocytes % 11.6 %; Mean Corpuscular Hemoglobin 32.1 pg (28.0-33.3); Mean Corpuscular Volume 97.2 fL (83.0-100.0); Mean Platelet Volume 9.8 fL (9.4-12.4); Monocytes # 0.8 K/mcL (0.0-1.3); Monocytes % 5.9 %; Neutrophils # 10.6 K/mcL (1.6-8.9); Platelet Count 231 K/mcL (140-400); Red Blood Count 3.55 M/mcL (4.19-5.50); Red Cell Distribution Width 13.6 % (11.5-14.5); Segmented Neutrophils % 81.8 %
[2020-08-21 22:49] LABS: INR 1.5; Prothrombin Time 17.5 Seconds (9.4-12.1)
[2020-08-21] MEDS ORDERED: Vancomycin 1,500 MG/265 ML IV.SOLN IVPB ONE (22:51)
[2020-08-21] MEDS ORDERED: Azithromycin 500 MG in 0.9 % Sodium Chloride 250 ML IVPB ONE (22:51)
[2020-08-21] MEDS ORDERED: Piperacillin/Tazobactam 3.375 GM in 0.9 % Sodium Chloride Mini Bag 100 ML IVPB ONE (22:51)
[2020-08-21 23:05] LABS: ABG Base Excess 6 mEq/L (-2 to 3); ABG HCO3 32 mEq/L (21-27); ABG Oxygen Saturation 100 % (95-98); ABG PCO2 52 mmHg (35-45); ABG PH 7.39 pH Units (7.32-7.45); ABG PO2 231 mmHg (85-104); ABG TCO2 34 mEq/L (20-26)
[2020-08-21 23:07] LABS: Alanine Aminotransferase 13 Units/L (7-52); Albumin 3.5 g/dL (3.5-5.7); Albumin/Globulin Ratio 1.5 (1.1-2.2); Alkaline Phosphatase 59 Units/L (34-104); Aspartate Amino Transferase 13 Units/L (13-39); BUN/Creatinine Ratio 12 (6-26); Bilirubin,Direct 0.1 mg/dL (0.0-0.2); Bilirubin,Indirect 0.3 mg/dL (0.0-1.0); Bilirubin,Total 0.4 mg/dL (0.3-1.0); Blood Urea Nitrogen 10 mg/dL (8-23); Calcium 8.5 mg/dL (8.6-10.3); Carbon Dioxide 26 mEq/L (23-29); Chloride 103 mEq/L (98-107); Globulin 2.4 g/dL (2.4-3.5); Glucose 106 mg/dL (70-105); Magnesium 1.7 mg/dL (1.6-2.6); Osmolality,Calculated 287 (280-300); Potassium 3.4 mEq/L (3.5-5.1); Sodium 139 mEq/L (136-145); Total Protein 5.9 g/dL (6.4-8.9); Troponin I < 0.03 ng/mL (< 0.04); eGFR For African Americans > 60 (> 60); eGFR For Non-African Americans > 60 (> 60)
[2020-08-21] MEDS ORDERED: Isovue-370 500 ML BOTTLE IVP ONE (23:22)
[2020-08-21 23:50] LABS: Bacteria,Urine Few per hpf (None-Few); Bilirubin,Urine Negative (Negative); Blood,Urine Negative (Negative); Clarity,Urine Clear (Clear); Color,Urine Light-Yellow (Yellow); Glucose,Urine (UA) Normal (Normal); Ketones,Urine Negative (Negative); Leukocyte Esterase,Urine Small (Negative); Nitrite,Urine Positive (Negative); Protein,Urine Negative (Neg-Trace); Specific Gravity,Urine 1.008 (1.010-1.025); Urobilinogen,Urine Normal (Normal)
[2020-08-21] MEDS ORDERED: Ipratropium/Albuterol Neb 3 ML IH ONE (23:55)
[2020-08-22] MEDS ORDERED: 0.9 % Sodium Chloride 1,000 ML ONE (00:22)
[2020-08-22] MEDS ORDERED: 0.9 % Sodium Chloride 1,000 ML IVC ONE ×3 (00:24→01:05)
[2020-08-22] MEDS ORDERED: Ipratropium/Albuterol Neb 3 ML IH PRN (02:54)
[2020-08-22] MEDS ORDERED: methylPREDNISolone 125 MG/2 ML VIAL IVP STA (02:54)
[2020-08-22] MEDS: Ipratropium/Albuterol Neb 3 ML IH SCH ×6 (03:51→23:52)
[2020-08-22 06:23] LABS: Hematocrit 35.2 % (37.5-50.1); Hemoglobin 11.2 g/dL (12.9-16.9); Mean Corpuscular HGB Conc 31.8 g/dL (31.6-35.5); Mean Corpuscular Hemoglobin 31.8 pg (28.0-33.3); Mean Platelet Volume 9.7 fL (9.4-12.4); Platelet Count 201 K/mcL (140-400); Red Blood Count 3.52 M/mcL (4.19-5.50); Red Cell Distribution Width 13.9 % (11.5-14.5); White Blood Count 12.1 K/mcL (4.3-11.1)
[2020-08-22 06:28] LABS: BUN/Creatinine Ratio 11 (6-26); Blood Urea Nitrogen 9 mg/dL (8-23); Calcium 8.2 mg/dL (8.6-10.3); Carbon Dioxide 27 mEq/L (23-29); Chloride 109 mEq/L (98-107); Glucose 101 mg/dL (70-105); Osmolality,Calculated 291 (280-300); Potassium 3.9 mEq/L (3.5-5.1); Sodium 141 mEq/L (136-145); eGFR For African Americans > 60 (> 60); eGFR For Non-African Americans > 60 (> 60)
[2020-08-22] MEDS ORDERED: Ondansetron ODT 4 MG TAB.RAPDIS SL PRN (07:33)
[2020-08-22] MEDS: Budesonide/Formoterol 160/4.5 1 PUFF INH IH SCH ×2 (07:49→20:13)
[2020-08-22 09:01] LABS: Adenovirus Not Detected (Not Detect); Bordetella Pertussis Not Detected (Not Detect); Chlamydophila pneumoniae Not Detected (Not Detect); Coronavirus 229E Not Detected (Not Detect); Coronavirus HKU1 Not Detected (Not Detect); Coronavirus NL63 Not Detected (Not Detect); Coronavirus OC43 Not Detected (Not Detect); Human Metapneumovirus Not Detected (Not Detect); Human Rhinovirus/Enterovirus Not Detected (Not Detect); Influenza A Subtype 2009 H1 Not Detected (Not Detect); Influenza B Not Detected (Not Detect); Mycoplasma pneumoniae Not Detected (Not Detect); Parainfluenza Virus 1 Not Detected (Not Detect); Parainfluenza Virus 2 Not Detected (Not Detect); Parainfluenza Virus 3 Not Detected (Not Detect); Parainfluenza Virus 4 Not Detected (Not Detect); Respiratory Syncytial Virus Not Detected (Not Detect); SARS-CoV-2 Not Detected (Not Detect)
[2020-08-22] MEDS: QUEtiapine Fumarate 25 MG TABLET PO SCH ×2 (09:02→21:17)
[2020-08-22] MEDS: Apixaban 5 MG TABLET PO SCH ×2 (09:04→21:22)
[2020-08-22] MEDS: Docusate Oral Soln 100 MG/10 ML UDC PO SCH ×2 (09:04→21:15)
[2020-08-22] MEDS: Finasteride 5 MG TABLET PO SCH (09:04)
[2020-08-22] MEDS: Loratadine 10 MG TABLET PO SCH (09:04)
[2020-08-22] MEDS: Piperacillin/Tazobactam 3.375 GM in 0.9 % Sodium Chloride Mini Bag 100 ML IVPB SCH ×2 (09:05→17:01)
[2020-08-22] MEDS ORDERED: GuaiFENesin Liq 200 MG/10 ML UDC PO PRN (12:08)
[2020-08-22] MEDS: MethylPREDNISolone 40 MG/ML VIAL IVP SCH ×2 (12:21→18:41)
[2020-08-22] MEDS: Vancomycin 1,500 MG/265 ML IV.SOLN IVPB SCH (12:21)
[2020-08-22] MEDS: Mirtazapine 15 MG TABLET PO SCH (21:17)
[2020-08-22] MEDS: Melatonin 3 MG TABLET PO SCH (21:17)
[2020-08-22] MEDS: Nystatin Cream 15 GM TUBE TP SCH (21:21)
[2020-08-22] MEDS: Latanoprost 2.5 ML BOTTLE BOTH EYES SCH (21:23)
[2020-08-22] MEDS ORDERED: Azithromycin 500 MG in 0.9 % Sodium Chloride 250 ML IVPB SCH (23:00)
[2020-08-23] MEDS: Vancomycin 1,500 MG/265 ML IV.SOLN IVPB SCH (00:04)
[2020-08-23] MEDS: Ipratropium/Albuterol Neb 3 ML IH SCH ×6 (03:33→23:46)
[2020-08-23] MEDS: MethylPREDNISolone 40 MG/ML VIAL IVP SCH ×2 (03:45→12:22)
[2020-08-23] MEDS: Budesonide/Formoterol 160/4.5 1 PUFF INH IH SCH ×2 (07:40→19:44)
[2020-08-23] MEDS: Docusate Oral Soln 100 MG/10 ML UDC PO SCH ×2 (07:44→19:29)
[2020-08-23] MEDS: Finasteride 5 MG TABLET PO SCH (07:44)
[2020-08-23] MEDS: Loratadine 10 MG TABLET PO SCH (07:44)
[2020-08-23] MEDS: Apixaban 5 MG TABLET PO SCH ×2 (07:44→19:29)
[2020-08-23] MEDS: Bumetanide 1 MG TABLET PO SCH (07:44)
[2020-08-23] MEDS: QUEtiapine Fumarate 25 MG TABLET PO SCH ×2 (07:45→19:29)
[2020-08-23] MEDS: Piperacillin/Tazobactam 3.375 GM in 0.9 % Sodium Chloride Mini Bag 100 ML IVPB SCH ×4 (07:45→23:40)
[2020-08-23 10:39] LABS: eGFR For African Americans > 60 (> 60); eGFR For Non-African Americans > 60 (> 60)
[2020-08-23] MEDS: Fluticasone Propionate Nasal 50 MCG/SPRAY BOTTLE NS SCH (12:25)
[2020-08-23] MEDS: Nystatin Cream 15 GM TUBE TP SCH ×2 (12:25→19:30)
[2020-08-23 13:05] LABS: Basophils % 0.1 %; Hematocrit 32.9 % (37.5-50.1); Hemoglobin 10.2 g/dL (12.9-16.9); Immature Granulocytes % 0.6 % (0-4); Lymphocytes # 1.5 K/mcL (0.6-4.6); Lymphocytes % 8.5 %; Mean Corpuscular Hemoglobin 30.4 pg (28.0-33.3); Mean Corpuscular Volume 98.2 fL (83.0-100.0); Mean Platelet Volume 10.4 fL (9.4-12.4); Monocytes # 0.8 K/mcL (0.0-1.3); Monocytes % 4.5 %; Neutrophils # 15.6 K/mcL (1.6-8.9); Platelet Count 236 K/mcL (140-400); Red Blood Count 3.35 M/mcL (4.19-5.50); Red Cell Distribution Width 13.9 % (11.5-14.5); Segmented Neutrophils % 86.3 %
[2020-08-23] MEDS ORDERED: *HR* Dextrose 50 % in Water (Vial) 50 ML VIAL IVP PRN (15:14)
[2020-08-23] MEDS ORDERED: Dextrose Gel 15 GM/37.5 ML TUBE PO PRN ×2 (15:14)
[2020-08-23] MEDS ORDERED: D5% in Water 1,000 ML IVC PRN (15:14)
[2020-08-23] MEDS: Insulin LISPRO 300 UNITS/3 ML VIAL SQ SCH (16:22)
[2020-08-23] MEDS: Melatonin 3 MG TABLET PO SCH (19:29)
[2020-08-23] MEDS: Mirtazapine 15 MG TABLET PO SCH (19:29)
[2020-08-23] MEDS: Latanoprost 2.5 ML BOTTLE BOTH EYES SCH (19:31)
[2020-08-24] MEDS: Ipratropium/Albuterol Neb 3 ML IH SCH ×3 (04:10→11:26)
[2020-08-24] MEDS: Budesonide/Formoterol 160/4.5 1 PUFF INH IH SCH (07:55)
[2020-08-24 08:50] LABS: Basophils % 0.2 %; Eosinophils % 0.1 %; Hematocrit 34.7 % (37.5-50.1); Hemoglobin 11.2 g/dL (12.9-16.9); Immature Granulocytes % 0.3 % (0-4); Lymphocytes # 2.5 K/mcL (0.6-4.6); Mean Corpuscular HGB Conc 32.3 g/dL (31.6-35.5); Mean Corpuscular Hemoglobin 31.6 pg (28.0-33.3); Mean Platelet Volume 10.3 fL (9.4-12.4); Monocytes # 0.7 K/mcL (0.0-1.3); Monocytes % 5.7 %; Neutrophils # 9.3 K/mcL (1.6-8.9); Platelet Count 225 K/mcL (140-400); Red Blood Count 3.54 M/mcL (4.19-5.50); Red Cell Distribution Width 14.2 % (11.5-14.5); Segmented Neutrophils % 73.7 %; White Blood Count 12.6 K/mcL (4.3-11.1)
[2020-08-24] MEDS: Insulin LISPRO 300 UNITS/3 ML VIAL SQ SCH ×2 (08:56→12:42)
[2020-08-24] MEDS ORDERED: predniSONE 20 MG TABLET PO SCH (09:00)
[2020-08-24] MEDS: Piperacillin/Tazobactam 3.375 GM in 0.9 % Sodium Chloride Mini Bag 100 ML IVPB SCH (09:01)
[2020-08-24] MEDS: Docusate Oral Soln 100 MG/10 ML UDC PO SCH (09:02)
[2020-08-24] MEDS: Bumetanide 1 MG TABLET PO SCH (09:02)
[2020-08-24] MEDS: Apixaban 5 MG TABLET PO SCH (09:03)
[2020-08-24] MEDS: QUEtiapine Fumarate 25 MG TABLET PO SCH (09:03)
[2020-08-24] MEDS: Finasteride 5 MG TABLET PO SCH (09:03)
[2020-08-24] MEDS: Loratadine 10 MG TABLET PO SCH (09:03)
[2020-08-24 09:09] LABS: BUN/Creatinine Ratio 19 (6-26); Blood Urea Nitrogen 20 mg/dL (8-23); Calcium 8.9 mg/dL (8.6-10.3); Carbon Dioxide 29 mEq/L (23-29); Chloride 107 mEq/L (98-107); Glucose 97 mg/dL (70-105); Osmolality,Calculated 299 (280-300); Potassium 3.4 mEq/L (3.5-5.1); Sodium 143 mEq/L (136-145); eGFR For African Americans > 60 (> 60); eGFR For Non-African Americans > 60 (> 60)
[2020-08-24] MEDS: Fluticasone Propionate Nasal 50 MCG/SPRAY BOTTLE NS SCH (09:10)
[2020-08-24] MEDS: Nystatin Cream 15 GM TUBE TP SCH (09:10)
[2020-08-24 11:48] VITALS: BP 109/65
[2020-08-24 13:27] LABS: Adenovirus Not Detected (Not Detect); Coronavirus 229E Not Detected (Not Detect); Coronavirus HKU1 Not Detected (Not Detect); Coronavirus NL63 Not Detected (Not Detect); Coronavirus OC43 Not Detected (Not Detect); SARS-CoV-2 Not Detected (Not Detect)
[2020-08-24 13:28] LABS: Bordetella Pertussis Not Detected (Not Detect); Chlamydophila pneumoniae Not Detected (Not Detect); Human Metapneumovirus Not Detected (Not Detect); Human Rhinovirus/Enterovirus Not Detected (Not Detect); Influenza A Subtype 2009 H1 Not Detected (Not Detect); Influenza B Not Detected (Not Detect); Mycoplasma pneumoniae Not Detected (Not Detect); Parainfluenza Virus 1 Not Detected (Not Detect); Parainfluenza Virus 2 Not Detected (Not Detect); Parainfluenza Virus 3 Not Detected (Not Detect); Parainfluenza Virus 4 Not Detected (Not Detect); Respiratory Syncytial Virus Not Detected (Not Detect)
== END 2020-08-24 15:58 | DRG 698 ==
LOC: ICNU 21:29 → EMEROOARM 21:29 → ICNU 08-22 01:37 → SUATTDRO 08-22 01:38 → ICNU 08-22 02:34 → 2ANU 08-22 15:33
PROVIDERS: ADMIT Family Medicine; ATTEND Pharmacist

== ENCOUNTER 2022-02-11 20:10 | Inpatient (IN) ==
[2022-02-11 20:49] LABS: Basophils % 0.3 %; Eosinophils # 0.1 K/mcL (0.0-0.6); Eosinophils % 0.6 %; Hematocrit 34.6 % (37.5-50.1); Hemoglobin 11.5 g/dL (12.9-16.9); Immature Granulocytes % 0.3 % (0-4); Lymphocytes # 2.1 K/mcL (0.6-4.6); Lymphocytes % 14.6 %; Mean Corpuscular HGB Conc 33.2 g/dL (31.6-35.5); Mean Corpuscular Volume 99.4 fL (83.0-100.0); Mean Platelet Volume 10.3 fL (9.4-12.4); Monocytes # 0.8 K/mcL (0.0-1.3); Monocytes % 5.6 %; Neutrophils # 11.3 K/mcL (1.6-8.9); Platelet Count 161 K/mcL (140-400); Red Blood Count 3.48 M/mcL (4.19-5.50); Segmented Neutrophils % 78.6 %; White Blood Count 14.3 K/mcL (4.3-11.1)
[2022-02-11 20:52] LABS: VBG HCO3 24 mEq/L (21-27); VBG PCO2 40 mmHg (41-51); VBG PH 7.39 pH Units (7.32-7.42); VBG PO2 102 mmHg (25-50)
[2022-02-11 20:56] LABS: INR 1.2; Prothrombin Time 13.4 Seconds (9.4-12.1)
[2022-02-11 20:59] LABS: Activated Partial Thrombo Time 29.8 Seconds (26.0-36.0)
[2022-02-11 21:17] LABS: Alanine Aminotransferase 14 Units/L (7-52); Albumin 3.6 g/dL (3.5-5.7); Albumin/Globulin Ratio 1.4 (1.1-2.2); Alkaline Phosphatase 56 Units/L (34-104); Aspartate Amino Transferase 15 Units/L (13-39); BUN/Creatinine Ratio 22 (6-26); Bilirubin,Direct 0.1 mg/dL (0.0-0.2); Bilirubin,Indirect 0.3 mg/dL (0.0-1.0); Bilirubin,Total 0.4 mg/dL (0.3-1.0); Blood Urea Nitrogen 22 mg/dL (8-23); Calcium 8.7 mg/dL (8.6-10.3); Carbon Dioxide 24 mEq/L (23-29); Chloride 105 mEq/L (98-107); Globulin 2.6 g/dL (2.4-3.5); Glucose 152 mg/dL (70-105); Magnesium 1.9 mg/dL (1.6-2.6); Osmolality,Calculated 290 (280-300); Phosphorous 3.1 mg/dL (2.7-4.5); Sodium 137 mEq/L (136-145); Total Protein 6.2 g/dL (6.4-8.9); Troponin I < 0.03 ng/mL (< 0.04); eGFR For African Americans > 60 (> 60); eGFR For Non-African Americans > 60 (> 60)
[2022-02-11 21:32] LABS: Bilirubin,Urine Negative (Negative); Blood,Urine Negative (Negative); Clarity,Urine Clear (Clear); Color,Urine Light-Yellow (Yellow); Glucose,Urine (UA) Normal (Normal); Ketones,Urine Negative (Negative); Leukocyte Esterase,Urine Negative (Negative); Nitrite,Urine Negative (Negative); PH,Urine 6.5 pH Units (5.0-8.0); Protein,Urine Negative (Neg-Trace); Specific Gravity,Urine 1.018 (1.010-1.025); Urobilinogen,Urine Normal (Normal)
[2022-02-11] MEDS ORDERED: Ipratropium/Albuterol Neb 3 ML IH ONE (21:32)
[2022-02-11 21:45] LABS: Influenza A PCR Negative (Negative); Influenza B PCR Negative (Negative); Resp. Syncytial Virus PCR Negative (Negative)
[2022-02-11 21:48] LABS: SARS-CoV-2 by PCR (In House) Negative (Negative)
[2022-02-11] MEDS ORDERED: Cefepime HCl 1,000 MG in 0.9 % Sodium Chloride Mini Bag 100 ML IVPB STA (22:22)
[2022-02-11] MEDS ORDERED: Isovue-370 500 ML BOTTLE IVP ONE (23:13)
[2022-02-11] MEDS ORDERED: methylPREDNISolone 125 MG/2 ML VIAL IVP ONE (23:15)
[2022-02-12] MEDS ORDERED: 0.9 % Sodium Chloride 500 ML IVC ONE (02:34)
[2022-02-12] MEDS ORDERED: Acetaminophen 325 MG TABLET PO PRN (03:06)
[2022-02-12] MEDS ORDERED: Naloxone 0.4 MG/ML INJ IVP PRN (03:06)
[2022-02-12] MEDS ORDERED: Ondansetron 4 MG/2 ML VIAL IVP PRN (03:06)
[2022-02-12] MEDS ORDERED: 0.9 % Sodium Chloride 1,000 ML IVC SCH ×2 (03:15→06:00)
[2022-02-12] MEDS ORDERED: D5% in Water 1,000 ML IVC PRN (04:37)
[2022-02-12] MEDS ORDERED: *HR* Dextrose 50 % in Water (Syg) 50 ML SYRINGE IVP PRN (04:37)
[2022-02-12] MEDS ORDERED: Dextrose 4 GM Chewable Tablets PO PRN ×2 (04:37)
[2022-02-12] MEDS ORDERED: Vancomycin 2,000 MG/520 ML IV.SOLN IVPB ONE (05:00)
[2022-02-12] MEDS: MethylPREDNISolone 40 MG/ML VIAL IVP SCH ×4 (05:12→23:35)
[2022-02-12 05:42] LABS: Hematocrit 35.2 % (37.5-50.1); Hemoglobin 11.7 g/dL (12.9-16.9); Mean Corpuscular HGB Conc 33.2 g/dL (31.6-35.5); Mean Corpuscular Hemoglobin 33.4 pg (28.0-33.3); Mean Corpuscular Volume 100.6 fL (83.0-100.0); Mean Platelet Volume 10.5 fL (9.4-12.4); Platelet Count 160 K/mcL (140-400); Red Cell Distribution Width 12.9 % (11.5-14.5); White Blood Count 9.6 K/mcL (4.3-11.1)
[2022-02-12 06:11] LABS: BUN/Creatinine Ratio 17 (6-26); Blood Urea Nitrogen 18 mg/dL (8-23); Calcium 8.6 mg/dL (8.6-10.3); Carbon Dioxide 25 mEq/L (23-29); Chloride 107 mEq/L (98-107); Glucose 183 mg/dL (70-105); Osmolality,Calculated 293 (280-300); Potassium 3.9 mEq/L (3.5-5.1); Sodium 138 mEq/L (136-145); eGFR For African Americans > 60 (> 60); eGFR For Non-African Americans > 60 (> 60)
[2022-02-12 06:18] LABS: Troponin I < 0.03 ng/mL (< 0.04)
[2022-02-12] MEDS: Ipratropium/Albuterol Neb 3 ML IH SCH ×4 (07:33→20:50)
[2022-02-12] MEDS: Insulin LISPRO 300 UNITS/3 ML VIAL SUBQ SCH ×3 (07:52→18:06)
[2022-02-12] MEDS ORDERED: Piperacillin/Tazobactam 3.375 GM in 0.9 % Sodium Chloride Mini Bag 100 ML IVPB SCH (08:00)
[2022-02-12] MEDS ORDERED: Vancomycin 1,500 MG/265 ML IV.SOLN IVPB SCH (17:00)
[2022-02-13] MEDS: Ipratropium/Albuterol Neb 3 ML IH SCH ×7 (00:30→23:06)
[2022-02-13] MEDS: MethylPREDNISolone 40 MG/ML VIAL IVP SCH ×4 (05:13→23:55)
[2022-02-13 07:13] LABS: Basophils % 0.1 %; Hematocrit 34.4 % (37.5-50.1); Hemoglobin 11.5 g/dL (12.9-16.9); Immature Granulocytes % 0.8 % (0-4); Mean Corpuscular HGB Conc 33.4 g/dL (31.6-35.5); Mean Corpuscular Hemoglobin 32.8 pg (28.0-33.3); Mean Platelet Volume 10.8 fL (9.4-12.4); Monocytes # 0.4 K/mcL (0.0-1.3); Monocytes % 2.3 %; Neutrophils # 17.4 K/mcL (1.6-8.9); Platelet Count 172 K/mcL (140-400); Red Blood Count 3.51 M/mcL (4.19-5.50); Red Cell Distribution Width 13.1 % (11.5-14.5); Segmented Neutrophils % 91.8 %
[2022-02-13 07:41] LABS: BUN/Creatinine Ratio 22 (6-26); Blood Urea Nitrogen 21 mg/dL (8-23); Calcium 8.8 mg/dL (8.6-10.3); Carbon Dioxide 24 mEq/L (23-29); Chloride 106 mEq/L (98-107); Glucose 169 mg/dL (70-105); Osmolality,Calculated 291 (280-300); Sodium 137 mEq/L (136-145); eGFR For African Americans > 60 (> 60); eGFR For Non-African Americans > 60 (> 60)
[2022-02-13] MEDS: Insulin LISPRO 300 UNITS/3 ML VIAL SUBQ SCH ×3 (09:14→18:27)
[2022-02-14] MEDS ORDERED: Cefepime HCl 2,000 MG in 0.9 % Sodium Chloride 10 ML IVP SCH
[2022-02-14] MEDS: Ipratropium/Albuterol Neb 3 ML IH SCH ×6 (04:00→22:51)
[2022-02-14] MEDS: MethylPREDNISolone 40 MG/ML VIAL IVP SCH ×4 (05:30→23:39)
[2022-02-14 05:48] LABS: Basophils % 0.1 %; Hematocrit 34.2 % (37.5-50.1); Hemoglobin 11.2 g/dL (12.9-16.9); Immature Granulocytes % 0.6 % (0-4); Lymphocytes # 0.9 K/mcL (0.6-4.6); Lymphocytes % 6.3 %; Mean Corpuscular HGB Conc 32.7 g/dL (31.6-35.5); Mean Corpuscular Hemoglobin 32.7 pg (28.0-33.3); Mean Corpuscular Volume 99.7 fL (83.0-100.0); Mean Platelet Volume 10.9 fL (9.4-12.4); Monocytes # 0.3 K/mcL (0.0-1.3); Monocytes % 1.8 %; Neutrophils # 12.8 K/mcL (1.6-8.9); Platelet Count 190 K/mcL (140-400); Red Blood Count 3.43 M/mcL (4.19-5.50); Red Cell Distribution Width 13.2 % (11.5-14.5); Segmented Neutrophils % 91.2 %; White Blood Count 14.1 K/mcL (4.3-11.1)
[2022-02-14 06:10] LABS: BUN/Creatinine Ratio 29 (6-26); Blood Urea Nitrogen 27 mg/dL (8-23); Calcium 8.8 mg/dL (8.6-10.3); Carbon Dioxide 24 mEq/L (23-29); Chloride 106 mEq/L (98-107); Glucose 172 mg/dL (70-105); Osmolality,Calculated 293 (280-300); Potassium 4.1 mEq/L (3.5-5.1); Sodium 137 mEq/L (136-145); eGFR For African Americans > 60 (> 60); eGFR For Non-African Americans > 60 (> 60)
[2022-02-14] MEDS ORDERED: metroNIDAZOLE 500 MG TABLET PO SCH (09:00)
[2022-02-14] MEDS: Famotidine 20 MG TABLET PO SCH (09:30)
[2022-02-14] MEDS: GuaiFENesin Liq 200 MG/10 ML UDC PO SCH ×4 (09:30→21:23)
[2022-02-14] MEDS: Docusate Oral Soln 100 MG/10 ML UDC PO SCH (09:30)
[2022-02-14] MEDS: Insulin LISPRO 300 UNITS/3 ML VIAL SUBQ SCH ×3 (09:30→17:13)
[2022-02-14] MEDS: Loratadine 10 MG TABLET PO SCH (09:30)
[2022-02-14] MEDS: Cholecalciferol (D-3) 1,000 UNIT (25MCG) TABLET PO SCH (09:30)
[2022-02-14] MEDS: Piperacillin/Tazobactam 3.375 GM in 0.9 % Sodium Chloride Mini Bag 100 ML IVPB SCH ×3 (09:30→23:39)
[2022-02-14] MEDS: Finasteride 5 MG TABLET PO SCH (09:30)
[2022-02-14] MEDS: Fluticasone Propionate Nasal 50 MCG/SPRAY BOTTLE NS SCH (11:03)
[2022-02-14] MEDS: Bumetanide 1 MG TABLET PO SCH (11:17)
[2022-02-14] MEDS: Budesonide/Formoterol 160/4.5 1 PUFF INH IH SCH (20:06)
[2022-02-14] MEDS: Melatonin 3 MG TABLET PO SCH (21:24)
[2022-02-14] MEDS: Latanoprost 2.5 ML BOTTLE BOTH EYES SCH (21:24)
[2022-02-15 02:54] LABS: Basophils % 0.1 %; Hematocrit 32.2 % (37.5-50.1); Hemoglobin 10.9 g/dL (12.9-16.9); Immature Granulocytes % 0.5 % (0-4); Lymphocytes # 0.7 K/mcL (0.6-4.6); Lymphocytes % 5.3 %; Mean Corpuscular HGB Conc 33.9 g/dL (31.6-35.5); Mean Corpuscular Hemoglobin 33.4 pg (28.0-33.3); Mean Corpuscular Volume 98.8 fL (83.0-100.0); Mean Platelet Volume 10.9 fL (9.4-12.4); Monocytes # 0.4 K/mcL (0.0-1.3); Monocytes % 3.1 %; Neutrophils # 11.6 K/mcL (1.6-8.9); Platelet Count 191 K/mcL (140-400); Red Blood Count 3.26 M/mcL (4.19-5.50); Red Cell Distribution Width 13.2 % (11.5-14.5); White Blood Count 12.7 K/mcL (4.3-11.1)
[2022-02-15 03:13] LABS: BUN/Creatinine Ratio 27 (6-26); Blood Urea Nitrogen 28 mg/dL (8-23); Calcium 8.4 mg/dL (8.6-10.3); Carbon Dioxide 24 mEq/L (23-29); Chloride 105 mEq/L (98-107); Glucose 169 mg/dL (70-105); Magnesium 2.1 mg/dL (1.6-2.6); Osmolality,Calculated 291 (280-300); Phosphorous 2.8 mg/dL (2.7-4.5); Potassium 3.8 mEq/L (3.5-5.1); Sodium 136 mEq/L (136-145); eGFR For African Americans > 60 (> 60); eGFR For Non-African Americans > 60 (> 60)
[2022-02-15] MEDS: Ipratropium/Albuterol Neb 3 ML IH SCH ×5 (03:53→20:00)
[2022-02-15] MEDS: *HR* Enoxaparin 40 MG/0.4 ML SYRINGE SQ SCH (05:50)
[2022-02-15] MEDS: MethylPREDNISolone 40 MG/ML VIAL IVP SCH ×3 (05:50→18:30)
[2022-02-15] MEDS: Budesonide/Formoterol 160/4.5 1 PUFF INH IH SCH ×2 (07:59→20:00)
[2022-02-15] MEDS: Famotidine 20 MG TABLET PO SCH (09:02)
[2022-02-15] MEDS: Bumetanide 1 MG TABLET PO SCH (09:02)
[2022-02-15] MEDS: Finasteride 5 MG TABLET PO SCH (09:02)
[2022-02-15] MEDS: Cholecalciferol (D-3) 1,000 UNIT (25MCG) TABLET PO SCH (09:02)
[2022-02-15] MEDS: GuaiFENesin Liq 200 MG/10 ML UDC PO SCH ×4 (09:02→20:35)
[2022-02-15] MEDS: Loratadine 10 MG TABLET PO SCH (09:03)
[2022-02-15] MEDS: Piperacillin/Tazobactam 3.375 GM in 0.9 % Sodium Chloride Mini Bag 100 ML IVPB SCH ×3 (09:04→23:12)
[2022-02-15] MEDS: Fluticasone Propionate Nasal 50 MCG/SPRAY BOTTLE NS SCH (09:07)
[2022-02-15] MEDS: Insulin LISPRO 300 UNITS/3 ML VIAL SUBQ SCH ×3 (09:07→16:25)
[2022-02-15] MEDS: Docusate Oral Soln 100 MG/10 ML UDC PO SCH (10:34)
[2022-02-15] MEDS: Latanoprost 2.5 ML BOTTLE BOTH EYES SCH (20:35)
[2022-02-15] MEDS: Melatonin 3 MG TABLET PO SCH (20:35)
[2022-02-16] MEDS: Ipratropium/Albuterol Neb 3 ML IH SCH ×7 (04:07→23:41)
[2022-02-16] MEDS: MethylPREDNISolone 40 MG/ML VIAL IVP SCH ×2 (05:48→17:22)
[2022-02-16] MEDS: *HR* Enoxaparin 40 MG/0.4 ML SYRINGE SQ SCH (05:49)
[2022-02-16] MEDS: Budesonide/Formoterol 160/4.5 1 PUFF INH IH SCH ×2 (07:44→19:56)
[2022-02-16] MEDS: GuaiFENesin Liq 200 MG/10 ML UDC PO SCH ×4 (09:17→20:27)
[2022-02-16] MEDS: Docusate Oral Soln 100 MG/10 ML UDC PO SCH (09:17)
[2022-02-16] MEDS: Famotidine 20 MG TABLET PO SCH (09:25)
[2022-02-16] MEDS: Finasteride 5 MG TABLET PO SCH (09:26)
[2022-02-16] MEDS: Loratadine 10 MG TABLET PO SCH (09:26)
[2022-02-16] MEDS: Piperacillin/Tazobactam 3.375 GM in 0.9 % Sodium Chloride Mini Bag 100 ML IVPB SCH ×3 (09:26→23:35)
[2022-02-16] MEDS: Cholecalciferol (D-3) 1,000 UNIT (25MCG) TABLET PO SCH (09:26)
[2022-02-16] MEDS: Fluticasone Propionate Nasal 50 MCG/SPRAY BOTTLE NS SCH (09:27)
[2022-02-16] MEDS: Insulin LISPRO 300 UNITS/3 ML VIAL SUBQ SCH ×3 (09:28→17:28)
[2022-02-16] MEDS: Bumetanide 1 MG TABLET PO SCH (09:33)
[2022-02-16 14:02] LABS: Adenovirus Not Detected (Not Detect); Bordetella Pertussis Not Detected (Not Detect); Chlamydophila pneumoniae Not Detected (Not Detect); Coronavirus 229E Not Detected (Not Detect); Coronavirus HKU1 Not Detected (Not Detect); Coronavirus NL63 Not Detected (Not Detect); Coronavirus OC43 Not Detected (Not Detect); Human Metapneumovirus Not Detected (Not Detect); Human Rhinovirus/Enterovirus Not Detected (Not Detect); Influenza A Subtype 2009 H1 Not Detected (Not Detect); Influenza B Not Detected (Not Detect); Mycoplasma pneumoniae Not Detected (Not Detect); Parainfluenza Virus 1 Not Detected (Not Detect); Parainfluenza Virus 2 Not Detected (Not Detect); Parainfluenza Virus 3 Not Detected (Not Detect); Parainfluenza Virus 4 Not Detected (Not Detect); Respiratory Syncytial Virus Not Detected (Not Detect); SARS-CoV-2 Not Detected (Not Detect)
[2022-02-16] MEDS: Latanoprost 2.5 ML BOTTLE BOTH EYES SCH (20:27)
[2022-02-16] MEDS: Melatonin 3 MG TABLET PO SCH (20:27)
[2022-02-17] MEDS: Ipratropium/Albuterol Neb 3 ML IH SCH ×4 (03:37→16:14)
[2022-02-17] MEDS: *HR* Enoxaparin 40 MG/0.4 ML SYRINGE SQ SCH (05:39)
[2022-02-17] MEDS: MethylPREDNISolone 40 MG/ML VIAL IVP SCH (05:39)
[2022-02-17] MEDS: Budesonide/Formoterol 160/4.5 1 PUFF INH IH SCH (07:48)
[2022-02-17] MEDS: Famotidine 20 MG TABLET PO SCH (09:00)
[2022-02-17] MEDS: Cholecalciferol (D-3) 1,000 UNIT (25MCG) TABLET PO SCH (09:00)
[2022-02-17] MEDS: Fluticasone Propionate Nasal 50 MCG/SPRAY BOTTLE NS SCH (09:00)
[2022-02-17] MEDS: Finasteride 5 MG TABLET PO SCH (09:00)
[2022-02-17] MEDS: Loratadine 10 MG TABLET PO SCH (09:00)
[2022-02-17] MEDS: GuaiFENesin Liq 200 MG/10 ML UDC PO SCH ×2 (09:02→13:03)
[2022-02-17] MEDS: Bumetanide 1 MG TABLET PO SCH (09:11)
[2022-02-17] MEDS: Piperacillin/Tazobactam 3.375 GM in 0.9 % Sodium Chloride Mini Bag 100 ML IVPB SCH (09:12)
[2022-02-17] MEDS: Docusate Oral Soln 100 MG/10 ML UDC PO SCH (09:12)
[2022-02-17] MEDS: Insulin LISPRO 300 UNITS/3 ML VIAL SUBQ SCH ×2 (09:26→12:57)
[2022-02-17 11:12] VITALS: TEMP 97.6
[2022-02-17 16:16] VITALS: O2SAT 100
[2022-02-17 16:41] VITALS: BP 152/85; PULSE 62
[2022-02-18] MEDS ORDERED: predniSONE 20 MG TABLET PO SCH (09:00)
== END 2022-02-17 18:30 | DRG 871 ==
LOC: EMEROOARM 20:10 → 3NENU 20:10 → SUATTDRO 02-12 03:47 → 3NENU 02-12 04:06 → SUATTDRO 02-12 15:19
PROVIDERS: ADMIT Internal Medicine; ATTEND Internal Medicine